=== PATIENT | male | born 1960 | race American Indian/Alaskan Native ===

== ENCOUNTER 2021-06-03 09:24 | Day surgery (SDC) | payer OTHER ==
[~2021-06-03 09:24] MED LIST: SODIUM CHLORIDE 0.9% 1000 ML 1,000 ML IV SCH
--- NOTE | 2021-06-03 10:14 | Anesthesia Consultation ---
Anesthesia Consult and Med Hx Date of service: 06/03/21 - Airway Anesthetic Teeth Evaluation: Poor (multiple missing, broken teeth) ROM Head & Neck: Adequate Mental/Hyoid Distance: Adequate Mallampati Class: Class II Intubation Access Assessment: Probably Good - Pre-Operative Health Status ASA Pre-Surgery Classification: ASA2 Proposed Anesthetic Plan: MAC - Pulmonary Hx Smoking: Yes (1 pack/day x 40 years) - Gastrointestinal Hx Gastroesophageal Reflux Disease: Yes
--- NOTE | 2021-06-03 10:15 | Anesthesia Day of Surgery ---
Anesthesia Day of Surgery - Day of Surgery Patient Examined: Yes Patient H&P Reviewed: Yes Patient is NPO: Yes
[2021-06-03] MEDS ORDERED: LIDOCAINE MPF (2%) 20 MG/1 ML VIAL 5 ML ONE (11:12)
[2021-06-03] MEDS ORDERED: propofoL 200 MG/20 ML VIAL IV ONE ×2 (11:13→11:26)
[2021-06-03] MEDS ORDERED: fentaNYL 100 MCG/2 ML INJ ONE (11:13)
[2021-06-03] MEDS ORDERED: ONDANSETRON 4 MG/2 ML INJ ONE (11:14)
--- NOTE | 2021-06-03 12:11 | Procedure Note ---
Date of procedure: 06/03/21 Pre-op diagnosis: GERD/ Dyspepsia/ F/H/O Cancer/ Colon Polyp Screening Post-op diagnosis: other (Mild to moderate Erosive Esophagitis/ Gastritis/ Multiple Colon Polyps (Transverse and Recto-Sigmoid)/ Moderate, Left Colon Diverticuli/ No Internal Hemorrhoids) Procedure: EGD with biopsy/ Colonoscopy with Cold Snare Polypectomy and Cold Biopsy Anesthesia: [facility] [place] Surgeon: LETI PONCE Estimated blood loss: minimal Pathology: list Specimen disposition: to lab Condition: stable Disposition: same day (Avoid aspirin and NSAID and anticoagulants for 5 days; otherwise resume home medication. Treat eith PPI and Fiber intake and F/U in 2 weeks ([phone]).)
--- NOTE | 2021-06-03 12:54 | Post Anesthesia Evaluation ---
- Post Anesthesia Evaluation Patient Participated: Yes Airway Patent: Yes Stable Respiratory Function: Yes Nausea/Vomiting: No Temp > 96.8F: Yes Pain Manageable: Yes Adequeate Hydration: Yes Anesthesia Complications: No
--- NOTE | 2021-06-03 12:58 | Operative Report ---
DATE OF SURGERY: 06/03/2021 PROCEDURE: Colonoscopy. SUMMARY AND INDICATIONS: This is a 60-year-old -[place] gentleman with a family history of cancer. He had EGD done because of dyspepsia, which showed esophagitis and gastritis, but no peptic ulcer disease. DESCRIPTION OF PROCEDURE: Colonoscopy was done after getting informed consent with MAC anesthesia. Initial rectal examination was unremarkable. Instrument was passed through the rectum onto the cecum, which was identified with ileocecal valve and the appendiceal orifice. Visualization was fair to good. Cecum, ascending colon showed normal mucosa. In the transverse colon, there was a solitary 10 mm polyp noted that was removed by cold snare polypectomy and retrieved using the biopsy forceps. The remaining part of the transverse colon showed normal mucosa. The left colon especially in the descending and the sigmoid, there was moderately severe diverticular disease and in the rectosigmoid area, there were several small polyps, possibly hyperplastic that were removed by cold biopsy with minimal bleeding. The rectum did not show any hemorrhoids on the retroverted view. ASSESSMENT: Colon polyp screening, multiple rectosigmoid polyps removed by cold biopsy, possibly hyperplastic. Another polyp was removed from the transverse colon. Family history of cancer. No internal hemorrhoids and moderate left colon diverticular disease. The patient will be treated with PPI because of the EGD findings of esophagitis and gastritis. Encouraged to take fiber supplements because of the diverticular disease. Resume home medication, but to avoid aspirin and aspirin-related products and anticoagulants for the next 3-4 days. The patient will be asked to follow up in the office in two weeks' time. Again, procedure was done in the GI lab with assistance of the GI lab team, the GI nurse, the server support technician and with assistance of anesthesia. TID: [id number] RECEIPT: [id number] CARMITA/PEGGY
[2021-06-03 12:59] VITALS: BP 137/82
--- NOTE | 2021-06-03 13:09 | Operative Report ---
DATE OF SURGERY: 06/03/2021 PROCEDURE PERFORMED: EGD with biopsy. INDICATIONS: This is a 60-year-old -[place] gentleman who has a family history of cancer, has been having GERD symptoms and dyspepsia. EGD was done to assess for any significant upper GI pathology. DESCRIPTION OF PROCEDURE: After getting informed consent with MAC anesthesia, instrument was passed through the hypopharynx into the esophagus which showed mild to moderate erosive esophagitis. Stomach showed gastritis. Biopsy was done from the gastric antrum and the gastric body and angular incisura to rule out for H. pylori and atrophic gastritis. Additional biopsy was done from the distal esophagus to assess for the severity of the erosive esophagitis. The pylorus is patent. The duodenum in the first and second portion appeared normal. No additional biopsy was done. There was minimal bleeding from the biopsy sites. No complications associated with the procedure. ASSESSMENT: Gastroesophageal reflux disease symptoms of dyspepsia, mild to moderate erosive esophagitis, gastritis. No peptic ulcer disease noted. The patient will be placed on PPI and asked to avoid aspirin and aspirin-related products and anticoagulants for the next 4-5 days and to refrain from smoking and alcohol use and follow up in the office in 1-2 weeks' time. A colonoscopy is to be done as part of colon polyp screening. The patient has never had a colonoscopy done before and does have a family history of cancer. Procedure was done in the GI lab with assistance of the GI lab team, the GI nurse, the fuel storage technician and with assistance of anesthesia. TID: [id number] RECEIPT: [id number] RUT
== END 2021-06-03 13:15 | disposition home or self-care (01) ==
LOC: GIO 09:24
DX: Z12.11 Encounter for screening for malignant neoplasm of colon (principal); K21.9 Gastro-esophageal reflux disease without esophagitis; D12.3 Benign neoplasm of transverse colon; B96.81 Helicobacter pylori [H. pylori] as the cause of diseases classified elsewhere; K31.89 Other diseases of stomach and duodenum; K63.89 Other specified diseases of intestine; K29.50 Unspecified chronic gastritis without bleeding; Z87.891 Personal history of nicotine dependence; Z79.899 Other long term (current) drug therapy; Z98.890 Other specified postprocedural states
CPT/HCPCS: 43239; 45380; 45385; 88305; 88342; J2405; J2704; J3010; J7030